=== PATIENT | female | born 1960 | race Caucasian/White ===

== ENCOUNTER → 2023-08-29 15:15 | Outpatient (BNVA) | payer MEDICAID, SELFPAY | PROVIDERS: PCP Internal Medicine; Visit Provider Physician Assistant Surgical ==

== ENCOUNTER 2023-09-03 08:11 | Outpatient (AMB) | payer MEDICAID, SELFPAY ==
--- NOTE | 2023-09-03 11:19 | MHC.OFFVISWM ---
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[facility] BMI 49.1 Allergies aspirin Adverse Reaction (Intermediate, Verified 09/03/23 11:19) Anaphylaxis levofloxacin [From Levaquin] Adverse Reaction (Intermediate, Verified 09/03/23 11:19) Swelling Medication List - Last Reconciled 09/03/23 by Pancho Polo MD atorvastatin 10 mg PO DAILY metformin 1,000 mg PO sertraline mg PO DAILY HPI 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[facility] BMI 49.1 HPI Details Start time: 11.10am, End time: 11.49am ?I spent 34 minutes speaking with the patient on the phone plus an additional 5 minutes reviewing and updating records for a total of 39 minutes HPI Comments History of Present Illness Details Previous weight loss efforts: Weight Watchers Wakes up: 6am, Sleeps: 9pm Breakfast: skips Lunch: 12-1pm (tuna) Dinner: 7pm (chicken with potatoes, vegetables) Snacks: 10am (banana), 4pm (nuts) Exercise: none Fluids: Coffee (1-2/day with creamer), tea: none, soda: diet gingerale, juice: none, ETOH: none PFSH Medical History (Updated 09/03/23 @ 11:25 by Pancho Polo MD) Anxiety Depression DJD (degenerative joint disease) Non-insulin dependent type 2 diabetes mellitus Hyperlipidemia Sleep apnea treated with continuous positive airway pressure (CPAP) Morbid obesity Surgical History (Updated 09/01/23 @ 08:22 by Laurita Cam CMA) Hx of wisdom tooth extraction Hx of tonsillectomy Hx of hysterectomy Hx of colonoscopy Family History (Updated 08/29/23 @ 15:50 by Laurita Cam CMA) Maternal Aunt Breast cancer Paternal Grandmother Breast cancer Social History (Updated 08/29/23 @ 15:50 by Laurita Cam CMA) Alcohol intake: never Patient Tobacco Use Status: Never used Tobacco Assessment & Plan Assessment & Plan (1) Morbid obesity: Code(s): E66.01 - Morbid (severe) obesity due to excess calories Plan: 1.? Plan for lap sleeve gastrectomy. If diaphragmatic or ventral hernias are present at time of surgery, these will be repaired laparoscopically as well. Risks and complications were discussed in detail including possible conversion to an open procedure, anastomotic leak, bleeding requiring transfusion, small bowel obstruction, , DVT and pulmonary embolism, cardiac, or pulmonary complications, as supervisor intermediates complications such as anastomotic ulcer, insufficient weight loss and vitamin deficiencies. I emphasized the importance of close follow-up, adherence to instructions and good communication. 2. Nutritional counseling. Start with 2 CELEBRATE REBUILD protein (buy at [facility] [employer] [facility]) shakes (ONE scoop EACH in 8oz low fat unsweetened almond milk each) at 7am-9am and 10am-12pm, 2 protein bars (CELEBRATE protein bars, buy at [facility] [employer] [facility]) at 1pm-3pm and 4pm-6pm, dinner at 7pm (10 forks of protein and 10 forks of salad/vegetables). If hungry you can have another HALF protein bar at 8pm-9pm So you do 2 protein shakes, 2 to 2.5 protein bars and one meal per day. Meal to include lean meat (beef, fish, pork, turkey, chicken), or tajik yogurt, or egg whites, or beans with a salad with olive oil and fruits (berries, pears, apples, kiwi). Avoid salt, breads, potatoes, rice, pasta, desserts. 3. Each shake would be drunk slowly, like coffee in a period of 2 hours. You can add your coffee into the shakes, if flavors match. 4. Cut each bar in 4 pieces and eat each piece in 30min ?to make each bar last 2 hours. 5. I emphasized the importance of measuring accurately the food portion and measure it when serving the food in plate 6. The meal portions include 10 full-size forks of meat and 10 full-size forks of salad. You always eat the meat portion but you can replace up to 5 forks for salad/vegetables with rice, potatoes or pasta, or a fruit ?if you like. The less you do it the better weight loss will be. 7. One full-size fork is what it can be scooped on the fork without falling aside and not what can be bit with the fork. Use regular forks like those you find in a typical restaurant. 8.? Please send me weight measurements as soon as possible and then once a week. Always include your diet and exercise plan. 9. The best choice would be to purchase a stationary bike at home that can track calories. Let me know if you do so I can give you an exercise plan. 10.?Goal is to lose at least 1.5-2lbs per week 11. Goal to lose 10% of your weight before surgery, which is about 30lbs. Ultimate weight goal: 278lbs before surgery 12. Please follow the diet plan exactly without any change. If you don't like something about the plan or you feel hungry you need to communicate with me so I can help you revise the plan. You should not change the plan yourself. Orders: Orders Hemoglobin A1c Today E11.9 - Type 2 diabetes mellitus without complications, E66.01 - Morbid (severe) obesity due to excess calories, E78.5 - Hyperlipidemia, unspecified, G47.30 - Sleep apnea, unspecified H Pylori Breath Test Today E11.9 - Type 2 diabetes mellitus without complications, E66.01 - Morbid (severe) obesity due to excess calories, E78.5 - Hyperlipidemia, unspecified, G47.30 - Sleep apnea, unspecified Complete Blood Count Auto Diff Today E11.9 - Type 2 diabetes mellitus without complications, E66.01 - Morbid (severe) obesity due to excess calories, E78.5 - Hyperlipidemia, unspecified, G47.30 - Sleep apnea, unspecified Lipid Panel Today E11.9 - Type 2 diabetes mellitus without complications, E66.01 - Morbid (severe) obesity due to excess calories, E78.5 - Hyperlipidemia, unspecified, G47.30 - Sleep apnea, unspecified Zinc Today E11.9 - Type 2 diabetes mellitus without complications, E66.01 - Morbid (severe) obesity due to excess calories, E78.5 - Hyperlipidemia, unspecified, G47.30 - Sleep apnea, unspecified TSH reflex Free T4 Today E11.9 - Type 2 diabetes mellitus without complications, E66.01 - Morbid (severe) obesity due to excess calories, E78.5 - Hyperlipidemia, unspecified, G47.30 - Sleep apnea, unspecified Vitamin D 25-OH Total Today E11.9 - Type 2 diabetes mellitus without complications, E66.01 - Morbid (severe) obesity due to excess calories, E78.5 - Hyperlipidemia, unspecified, G47.30 - Sleep apnea, unspecified US abdomen comp w elastography Today E11.9 - Type 2 diabetes mellitus without complications, E66.01 - Morbid (severe) obesity due to excess calories, E78.5 - Hyperlipidemia, unspecified, G47.30 - Sleep apnea, unspecified XR chest 2V Today E11.9 - Type 2 diabetes mellitus without complications, E66.01 - Morbid (severe) obesity due to excess calories, E78.5 - Hyperlipidemia, unspecified, G47.30 - Sleep apnea, unspecified Insulin Today E11.9 - Type 2 diabetes mellitus without complications, E66.01 - Morbid (severe) obesity due to excess calories, E78.5 - Hyperlipidemia, unspecified, G47.30 - Sleep apnea, unspecified IRON PROFILE Today E11.9 - Type 2 diabetes mellitus without complications, E66.01 - Morbid (severe) obesity due to excess calories, E78.5 - Hyperlipidemia, unspecified, G47.30 - Sleep apnea, unspecified Comprehensive Met. Panel Today E11.9 - Type 2 diabetes mellitus without complications, E66.01 - Morbid (severe) obesity due to excess calories, E78.5 - Hyperlipidemia, unspecified, G47.30 - Sleep apnea, unspecified Vitamin B12 and Folate Today E11.9 - Type 2 diabetes mellitus without complications, E66.01 - Morbid (severe) obesity due to excess calories, E78.5 - Hyperlipidemia, unspecified, G47.30 - Sleep apnea, unspecified C Reactive Protein Today E11.9 - Type 2 diabetes mellitus without complications, E66.01 - Morbid (severe) obesity due to excess calories, E78.5 - Hyperlipidemia, unspecified, G47.30 - Sleep apnea, unspecified Vitamin B1 Today E11.9 - Type 2 diabetes mellitus without complications, E66.01 - Morbid (severe) obesity due to excess calories, E78.5 - Hyperlipidemia, unspecified, G47.30 - Sleep apnea, unspecified Vitamin A Today E11.9 - Type 2 diabetes mellitus without complications, E66.01 - Morbid (severe) obesity due to excess calories, E78.5 - Hyperlipidemia, unspecified, G47.30 - Sleep apnea, unspecified Ferritin Today E11.9 - Type 2 diabetes mellitus without complications, E66.01 - Morbid (severe) obesity due to excess calories, E78.5 - Hyperlipidemia, unspecified, G47.30 - Sleep apnea, unspecified ECG 12 lead EKG Today E11.9 - Type 2 diabetes mellitus without complications, E66.01 - Morbid (severe) obesity due to excess calories, E78.5 - Hyperlipidemia, unspecified, G47.30 - Sleep apnea, unspecified FL upper GI w air Today E11.9 - Type 2 diabetes mellitus without complications, E66.01 - Morbid (severe) obesity due to excess calories, E78.5 - Hyperlipidemia, unspecified, G47.30 - Sleep apnea, unspecified Referrals Behavioral Health Referral E11.9 - Type 2 diabetes mellitus without complications, E66.01 - Morbid (severe) obesity due to excess calories, E78.5 - Hyperlipidemia, unspecified, G47.30 - Sleep apnea, unspecified Nutrition/Dietitian Referral E11.9 - Type 2 diabetes mellitus without complications, E66.01 - Morbid (severe) obesity due to excess calories, E78.5 - Hyperlipidemia, unspecified, G47.30 - Sleep apnea, unspecified Telehealth Telehealth Location of provider rendering services: practice address Location of patient: address on file Patient Identification confirmed using: Name, : Yes Telehealth method: voice only Patient verbally consented to treatment: Yes Patient verbally consented to billing insurance company: Yes Patient informed of any privacy concerns related to visit: Yes Minutes spent on Phone/Video with Pt.: 39 Coding Level of Care Code Tele [facility] Pt Level 3 (65901) Diagnoses Morbid obesity E66.01 Time Spent (min) 39
[2023-09-03 11:30] VITALS: BMI 49.0
== END 2023-09-03 11:50 | disposition home or self-care (01) ==
LOC: HO.HBS 08:11
PROVIDERS: PCP Internal Medicine; Referring Provider Internal Medicine; Visit Provider Surgery
DX: E66.01 Morbid (severe) obesity due to excess calories (principal)
CPT/HCPCS: 99203

== ENCOUNTER → 2023-09-03 08:11 | Outpatient (BNVA) | payer MEDICAID, SELFPAY | PROVIDERS: PCP Internal Medicine; Visit Provider Surgery ==

== ENCOUNTER 2023-09-18 13:19 | Outpatient (AMB) | payer MEDICAID, SELFPAY ==
--- NOTE | 2023-09-18 13:10 | MHC.AMNUTRGE ---
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 Polo. She has no questions or concerns regarding the shakes/bars but would appreciate recipe resources to increase variety for meals. Provided resources and ideas. SWL online classes: 10/02 Dietary counseling reduction Who buys your food self Who prepares/cooks your food self Lifestyle Food frequency Vegetables: daily, Grains/pasta/breads/cereal (carbs): daily, Meats/poultry/fish (protein): daily (minimal beef ), Meat substitutes/nuts/seeds/legumes: daily, Soda: never, Juice: never and Coffee: daily Diagnosis Nutrition problem #1 overweight/obesity As related to (etiology) #1 excess energy intake and physical inactivity As evidenced by (sign/symptom) #1 high BMI Monitoring/Goals Nutrition problem monitoring total energy intake, level of knowledge/skill, total PRO intake, total CHO intake and weight Outcome progress progressing Learning/Education Readiness to learn excellent Stages of change action Educational materials provided Yes Most Recent Diabetes Results: No Data to Display [facility] Medical History (Updated 09/03/23 @ 11:25 by Pancho Polo MD) Anxiety Depression DJD (degenerative joint disease) Non-insulin dependent type 2 diabetes mellitus Hyperlipidemia Sleep apnea treated with continuous positive airway pressure (CPAP) Morbid obesity Surgical History (Updated 09/01/23 @ 08:22 by Laurita Cam CMA) Hx of wisdom tooth extraction Hx of tonsillectomy Hx of hysterectomy Hx of colonoscopy Family History (Updated 08/29/23 @ 15:50 by Laurita Cam CMA) Maternal Aunt Breast cancer Paternal Grandmother Breast cancer Social History (Updated 08/29/23 @ 15:50 by Laurita Cam CMA) Alcohol intake: never Patient Tobacco Use Status: Never used Tobacco Assessment & Plan Assessment & Plan (1) Morbid obesity: Code(s): E66.01 - Morbid (severe) obesity due to excess calories Plan pt will complete online classes and follow up for review Telehealth Telehealth Location of provider rendering services: other (home address, [facility]) Location of patient: address on file Patient Identification confirmed using: Name, : Yes Telehealth method: video Patient verbally consented to treatment: Yes Patient verbally consented to billing insurance company: Yes Patient informed of any privacy concerns related to visit: Yes Minutes spent on Phone/Video with Pt.: 30 Coding Level of Care Code Nutr Indiv Intake (41350) Diagnoses Morbid obesity E66.01 Time Spent (min) 30
== END 2023-09-18 13:52 | disposition home or self-care (01) ==
LOC: HO.HBS 13:20
PROVIDERS: PCP Internal Medicine; Visit Provider Dietitian, Registered
DX: E66.01 Morbid (severe) obesity due to excess calories (principal)

== ENCOUNTER → 2023-09-18 13:19 | Outpatient (BNVA) | payer MEDICAID, SELFPAY | PROVIDERS: PCP Internal Medicine; Visit Provider Dietitian, Registered | DX: E66.01 Morbid (severe) obesity due to excess calories (principal) | CPT/HCPCS: 97802 ==

== ENCOUNTER 2023-09-24 14:25 | Outpatient (AMB) | payer OTHER, SELFPAY ==
--- NOTE | 2023-09-24 14:22 | MHC.WMTHER ---
Intake Intake Visit Reasons: VIDEO BH Intake Allergies aspirin Adverse Reaction (Intermediate, Verified 09/03/23 11:19) Anaphylaxis levofloxacin [From Levaquin] Adverse Reaction (Intermediate, Verified 09/03/23 11:19) Swelling PFSH Medical History (Updated 09/28/23 @ 13:16 by Pancho Polo MD) Anxiety Depression DJD (degenerative joint disease) Non-insulin dependent type 2 diabetes mellitus Hyperlipidemia Sleep apnea treated with continuous positive airway pressure (CPAP) Morbid obesity Surgical History (Updated 09/01/23 @ 08:22 by Laurita Cam CMA) Hx of wisdom tooth extraction Hx of tonsillectomy Hx of hysterectomy Hx of colonoscopy Family History (Updated 08/29/23 @ 15:50 by Laurita Cam CMA) Maternal Aunt Breast cancer Paternal Grandmother Breast cancer Social History (Updated 08/29/23 @ 15:50 by Laurita Cam CMA) Alcohol intake: never Patient Tobacco Use Status: Never used Tobacco Behavioral Health Assessment Weight Management Therapy Therapy Notes Details Pt is looking to have weight loss surgery to help improve his health and quality of life. Pt struggles with hip pain. She reported being in therapy over 20 years ago when her in his sleep at age 39. She is taking anti depressants prescribed by her doctor for about 5 years when she started to feel like she did not want to live anymore. Pt denied any psychiatric admissions and does not drink alcohol or has ever used drugs . Presenting Concerns Referral Source provider Reason for referral weight loss surgery evaluation Precipitating Event obesity Living Situation Current Living Situation Own At risk of losing current housing? No Satisfied with current living situation? Yes Comments Pt lives with her daughter and her . Food/Weight/Diet Expectations of change weight loss and maintenance History/Relationship with food Pt stated that she really didn't think her eating habits were that bad. She has realized that sometimes she ate when she was really not hungry. She would have large breakfast sometimes with maltese toast, ham, sausage, rose, kabob, biscuits, bread. History/Relationship with weight Pt is at her heaviest weight. She reported that after her , she stopped caring for herself and did not care what she looked like or her weight. History/Relationship with dieting [employer] as a teenager, [employer] Binge Eating Do you frequently eat large amounts of food in short periods of time, not feeling physically hungry? No Do you feel out of control when you eat a large amount of food in a short period of time? No Do you eat large amounts of food rapidly and typically alone? Yes Night Eating Do you wake up at least once during the night to eat? No If you wake up in the night, do you find that it is necessary to eat something in order to fall back asleep? No Do you have little or no appetite in the morning and feel very hungry in the evening, often overeating between dinner and when you go to bed? No Social History Family history and relationship Pt is a and has two adult children. She lives with her daughter and is disabled. Pt was raised by her parents and 3 siblings. Her mother has passed and she only speaks to her younger sister. 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 none Education Preferred learning style Auditory, Verbal, Written, Learn by doing and Visual Currently enrolled in educational program? No Interested in further educational program? No Educational Interests/Skills Patient has been disabled for over 10 years. Employment Employment Status Other Wants help to find employment? No Financial Situation Describe current financial situation Occasional struggle Financial assistance? Disability Service Service? No Mental Health and Addiction Treatment Current/Past substance abuse? No Current/Past addictive behavior concerns? No Medical and Physical Health Summary Physical exam in the last year? No Pain Screening Current pain? Yes Pain in the last few months? Yes Medications Is the patient compliant with medications? Yes Does the patient have [place] Guardian in place? Not applicable Does the patient use complimentary health approaches? No Trauma/Abuse History History of trauma? Yes Questionnaires PHQ-9 Over the last 2 weeks, how often have you been bothered by any of the following problems? 1. Little interest or pleasure in doing things: several days 2. Feeling down, depressed, or hopeless: several days 3. Trouble falling or staying asleep, or sleeping too much: nearly every day 4. Feeling tired or having little energy: several days 5. Poor appetite or overeating: several days 6. Feeling bad about yourself - or that you are a failure or have let yourself or your family down: not at all 7. Trouble concentrating on things, such as reading the newspaper or watching television: not at all 8. Moving or speaking so slowly that other people could have noticed. Or the opposite - being so fidgety or restless that you have been moving around a lot more than usual: not at all 9. Thoughts that you would be better off or of hurting yourself in some way: not at all Total score: 7 Source: Developed by Drs. Gavino Kwan, Viviana Velasquez, Billy Fisher and colleagues, with an educational devi from [employer]. Binge Eating Scale Group 1 A. I don't feel self-conscious about my wt. or body size when I'm with others. B. I feel concerned about how I look to others, but it normally does not make me fell disappointed with myself C. I do get self-conscious about my appearance and wt. which makes me feel disappointed in myself. D. I feel very self-conscious about my wt. and frequently I feel intense shame and disgust for myself. I try to avoid social contacts because of my self-consciousness. Response Group 1: D Group 2 A. I don't have any difficulty eating slowly in the proper manner. B. Although I seem to gobble down foods, I don't end up feeling stuffed because of eating to much. C. At times, I tend to eat quickly and then, I feel uncomfortably full afterwards. D. I have the habit of bolting down my food, without really chewing it. When this happens I usually feel uncomfortably stuffed because I've eaten to much. Response Group 2: A Group 3 A. I feel capable to control my eating urges when I want to. B. I feel like I have failed to control my eating more than the average person. C. I feel utterly helpless when it comes to feeling in control of my eating urges. D. Because I feel so helpless about controlling my eating I have become very desperate about trying to get control. Response Group 3: A Group 4 A. I don't have the habit of eating when I'm bored. B. I sometimes eat when I'm bored, but often I'm able to get busy and get my mind off food. C. I have a regular habit of eating when I'm bored, but occasionally, I can use some other activity to get my mind off eating. D. I have a strong habit of eating when I'm bored. Nothing seems to help me breath the habit. Response Group 4: B Group 5 A. I'm usually physically hungry when I eat something. B. Occasionally, I eat something on impulse even though I really am not hungry. C. I have the regular habit of eating foods, that I might not really enjoy, to satisfy a hungry feeling even though physically, I don't need the food. D. Although I'm not physically hungry, I get a hungry feeling in my mouth that only seems to be satisfied when I eat a food, like sandwich, that fills my mouth. Sometimes, when I eat the food to satisfy my mouth hunger, I then spit the food out so I won't gain weight. Response Group 5: B Group 6 A. I don't feel any guilt or self-hate after I overeat. B. After I overeat, occasionally I feel guilt or self-hate. C. Almost all the time I experience strong guilt or self-hate after I overeat. Response Group 6: A Group 7 A. I don't lose total control of my eating when dieting even after periods when I overeat. B. Sometimes when I eat a forbidden food on a diet, I feel like I blew it and eat even more. C. Frequently, I have the habit of saying to myself, I've blown it now, why not go all the way, when I overeat on a diet. When that happens I eat more. D. I have a regular habit of starting a strict diets for myself but I break the diets by going on an eating binge. My life seems to be either a feast or famine. Response Group 7: A Group 8 A. I rarely eat so much food that I feel uncomfortably stuffed afterwards. B. Usually about once a month, I each such a quantity of food, I end up feeling very stuffed. C. I have regular periods during the month when I eat large amounts of food, either at mealtime or at snacks. D. I eat so much food that I regularly feel quite uncomfortable after eating and sometimes a bit nauseous. Response Group 8: A Group 9 A. My level of calorie intake does not go up very high or go down very low on a regular basis. B. Sometimes after I overeat, I will try to reduce my caloric intake to almost nothing to compensate for the excess calories I've eaten. C. I have a regular habit of overeating during the night. It seems that my routine is not to be hungry in the morning but overeat in the evening. D. In my adult years, I have had week-long periods where I practically starve myself. This follows periods when I overeat. It seems I live a life of either feast or famine. Response Group 9: B Group 10 A. I usually am able to stop eating when I want to. I know when enough is enough. B. Every so often, I experience a compulsion to eat which I can't seem to control. C. Frequently, I experience strong urges to eat which I seem unable to control, but at other times I can control my eating urges. D. I feel incapable of controlling urges to eat. I have a fear of not being able to stop eating voluntarily. Response Group 10: A Group 11 A. I don't have any problem stopping eating when I feel full. B. I usually can stop eating when I feel full but occasionally overeat leaving me feeling uncomfortably stuffed. C. I have a problem stopping eating once I start and usually I feel uncomfortably stuffed after I eat a meal. D. Because I have a problem not being able to stop eating when I want, I sometimes have to induce vomiting to relieve my stuffed feeling. Response Group 11: B Group 12 A. I seem to eat just as much when I'm with others, Family social gatherings as when I'm by myself. B. Sometimes, when I'm with other persons, I don't eat as much as I want to eat because I'm self-conscious about my eating. C. Frequently, I eat only a small amount of food when others are present, because I'm very embarrassed about my eating. D. I feel so ashamed about overeating that I pick times to overeat when I know no one will see me. I feel like a closet eater. Response Group 12: A Group 13 A. I eat three meals a day with only an occasional between meal snack. B. I eat 3 meals a day, but I also normally snack between meals. C. When I am snacking heavily, I get in the habit of skipping regular meals. D. There are regular periods when I seem to be continually eating, with no planned meals. Response Group 13: A Group 14 A. I don't think much about trying to control unwanted eating urges. B. At least some of the time, I feel my thoughts are pre-occupied with trying to control my eating urges. C. I feel that frequently I spend much time thinking about how much I ate or about trying not to eat anymore. D. It seems to me that most of my waking hours are pre-occupied by thoughts about eating or not eating. I feel like I'm constantly struggling not to eat. Response Group 14: B Group 15 A. I don't think about food a great deal. B. I have strong craving for food but they last only for brief periods of time. C. I have days when I can't seem to think about anything else but food. D. Most of my days seem to be pre-occupied with thoughts about food. I feel like I live to eat. Response Group 15: A Group 16 A. I usually know whether or not I'm physically hungry. I take the right portion of food to satisfy me. B. Occasionally, I feel uncertain about knowing whether or not I'm physically hungry. A these times it's hard to know how much food I should take to satisfy me. C. Even though I might know how many calories I should eat, I don't have any idea what is a normal amount of food for me. Response Group 16: A Binge Eating Score: 8 Score less than 17 Minimal Risk Score between 18-26 Moderate Risk Score between 27-46 High Risk Assessment & Plan Assessment & Plan (1) Depression: Code(s): F32.A - Depression, unspecified (2) Morbid obesity: Code(s): E66.01 - Morbid (severe) obesity due to excess calories Plan Pt is doing well. She has no significant mental health barriers and numerous supports. Patient is cleared for surgery when ready. Telehealth Telehealth Location of provider rendering services: other Location of patient: address on file Patient Identification confirmed using: Name, : Yes Telehealth method: voice only Patient verbally consented to treatment: Yes Patient verbally consented to billing insurance company: Yes Patient informed of any privacy concerns related to visit: Yes Minutes spent on Phone/Video with Pt.: 45 Coding Level of Care Code Tele Psy Diag Eval (77342) Diagnoses Depression F32.A Morbid obesity E66.01 Time Spent (min) 45
== END 2023-09-24 15:15 ==
PROVIDERS: PCP Internal Medicine; Visit Provider Counselor Mental Health
DX: F32.A Depression, unspecified (principal); E66.01 Morbid (severe) obesity due to excess calories
CPT/HCPCS: 90791

== ENCOUNTER → 2023-09-24 14:25 | Outpatient (BNVA) | payer MEDICAID, SELFPAY | PROVIDERS: PCP Internal Medicine; Visit Provider Counselor Mental Health ==

== ENCOUNTER 2023-09-26 08:14 | Outpatient (AMB) | payer MEDICAID, SELFPAY ==
--- NOTE | 2023-09-26 08:48 | MHC.OFFVISWM ---
Intake VS Expanded 09/26/23 08:54 Height 5 ft 5.6 in Weight 296 lb 6 oz BMI 48.4 Body Fat % 66.9 Body Fat Mass 198.4 Fat Free Mass 98.2 Visceral Fat Rating 28 Body Water % 22.7 Body Water Mass 67.3 Intake Visit Reasons: TV Follow Up [facility] - 1ST Allergies aspirin Adverse Reaction (Intermediate, Verified 09/03/23 11:19) Anaphylaxis levofloxacin [From Levaquin] Adverse Reaction (Intermediate, Verified 09/03/23 11:19) Swelling HPI TV Follow Up [facility] - 1ST HPI Details Start time: 8.40am, End time: 9am ?I spent 15 minutes speaking with the patient on the phone plus an additional 5 minutes reviewing and updating records for a total of 20 minutes HPI Comments History of Present Illness Details Overall weight loss: 12.2lbs, or 4% TBWL Is doing 2 Celebrate Rebuild protein shakes (1 scoop each in 8oz almond milk), 2 Celebrate protein bars and one meal (10 forks of protein and 10 forks of salad or vegetables) Exercise: is doing the stationary bike [facility] Medical History (Updated 09/03/23 @ 11:25 by Pancho Polo MD) Anxiety Depression DJD (degenerative joint disease) Non-insulin dependent type 2 diabetes mellitus Hyperlipidemia Sleep apnea treated with continuous positive airway pressure (CPAP) Morbid obesity Surgical History (Updated 09/01/23 @ 08:22 by Laurita Cam CMA) Hx of wisdom tooth extraction Hx of tonsillectomy Hx of hysterectomy Hx of colonoscopy Family History (Updated 08/29/23 @ 15:50 by Laurita Cam CMA) Maternal Aunt Breast cancer Paternal Grandmother Breast cancer Social History (Updated 08/29/23 @ 15:50 by Laurita Cam CMA) Alcohol intake: never Patient Tobacco Use Status: Never used Tobacco Assessment & Plan Assessment & Plan (1) Morbid obesity: Code(s): E66.01 - Morbid (severe) obesity due to excess calories Plan: 1. Continue same nutritional plan of 2 Celebrate Rebuild protein shakes (1 scoop each in 8oz almond milk), 2 Celebrate protein bars and one meal (10 forks of protein and 10 forks of salad or vegetables) 2. Exercise: continue the stationary bike at the lowest resistance for 100 calories at a time, three times per day, daily. Goal is to burn 2000 calories per week 3. Avoid extensive walking 4. Continue to send me weight measurements weekly on Telehealth Telehealth Location of provider rendering services: practice address Location of patient: address on file Patient Identification confirmed using: Name, : Yes Telehealth method: voice only Patient verbally consented to treatment: Yes Patient verbally consented to billing insurance company: Yes Patient informed of any privacy concerns related to visit: Yes Minutes spent on Phone/Video with Pt.: 20 Coding Level of Care Code Tele Est Pt Level 3 (26765) Diagnoses Morbid obesity E66.01 Time Spent (min) 20
[2023-09-26 08:54] VITALS: BMI 48.4
== END 2023-09-26 09:00 | disposition home or self-care (01) ==
LOC: HO.HBS 08:14
PROVIDERS: PCP Internal Medicine; Referring Provider Internal Medicine; Visit Provider Surgery
DX: E66.01 Morbid (severe) obesity due to excess calories (principal)
CPT/HCPCS: 99213

== ENCOUNTER → 2023-09-26 08:14 | Outpatient (BNVA) | payer MEDICAID, SELFPAY | PROVIDERS: PCP Internal Medicine; Visit Provider Surgery ==

== ENCOUNTER 2023-10-01 10:28 | Outpatient (REF) | payer MEDICAID, SELFPAY ==
--- NOTE | ~2023-10-01 | US_ITS ---
EXAMINATION: US COMPLETE ABDOMEN WITH LIVER ELASTOGRAPHY CLINICAL INFORMATION: Obesity. COMPARISON: None available. TECHNIQUE: Real-time imaging of the abdominal viscera. Noninvasive ultrasound liver fibrosis assessment is performed using Den ElastPQ point quantification shear wave elastography (2D-SWE) with a C5-2 MHz transducer. Multiple elastography samples are obtained. FINDINGS: PANCREAS: Normal. The visualized pancreatic head and body are normal in appearance. The remainder of the pancreas is obscured from visualization by the overlying bowel gas. ABDOMINAL AORTA: The proximal segment is normal in caliber. The middle and distal aortic segments are normal in caliber. INFERIOR VENA CAVA: Visualized portions are normal. LIVER: The liver demonstrates normal contour and increased echogenicity. No focal lesion or intrahepatic biliary duct dilatation. The right lobe measures 18.1 cm in length. The left lobe measures 12.3 cm in length. Portal flow is towards the liver (hepatopetal). Shear wave liver elastography median stiffness is 1.57 m/s (reference: normal median stiffness is 1.3 m/s or less). IQR/median stiffness to assess sampling precision is 0.20 (reference: good quality data set is IQR/median stiffness of 0.15 or less). GALLBLADDER: Normal. The gallbladder is physiologically distended without evidence of stones, sludge, polyps, wall thickening or pericholecystic fluid. COMMON BILE DUCT: Normal in caliber measuring 0.3 cm in diameter. RIGHT KIDNEY: At the lower pole, a 5 mm nonobstructing calculus is seen. No hydronephrosis. No focal parenchymal lesions. The kidney measures 10.6 cm in maximum dimension. LEFT KIDNEY: Normal. No hydronephrosis. No renal calculi or focal parenchymal lesions. The kidney measures 11.4 cm in maximum dimension. SPLEEN: Normal. The spleen measures 11.3 cm in maximum dimension. FREE FLUID: None. US/US abdomen comp w elastography IMPRESSION: 1. There is hepatomegaly. 2. There is generalized increase in hepatic echotexture, consistent with fatty infiltration or hepatocellular disease. Please correlate clinically. No focal hepatic mass or intrahepatic biliary dilatation is seen. 3. Liver elastography: Although measurements appear to rule out compensated advanced chronic liver disease, there is statistical variability of the sampling which decreases accuracy. 4. A 5 mm nonobstructing left renal calculus is seen. 5. Technically limited ultrasound examination, in particular of the abdominal great vessels and left kidney. REFERENCE: Society of Radiologists in Ultrasound Liver Stiffness Thresholds (2020): LIVER STIFFNESS THRESHOLDS: *Liver Stiffness equal or less than 1.3 m/s: High probability of being normal. *Liver Stiffness less than 1.7 m/s: In the absence of other known clinical signs, rules out compensated advanced chronic liver disease. *Liver Stiffness 1.7-2.1 m/s: Suggestive of compensated advanced chronic liver disease but need further test for confirmation. *Liver Stiffness over 2.1 m/s: Rules in compensated advanced chronic liver disease. *Liver Stiffness over 2.4 m/s: Suggestive of clinically significant portal hypertension. QUALITY OF DATA SET: *IQR/Median value equal or less than 0.15 implies a quality data set. *IQR/Median value over 0.15 implies a poor quality data set. SIGNIFICANT CHANGE FROM PRIOR EXAM: Significant change if liver stiffness measurement is 10% or greater from prior exam. OTHER CONSIDERATIONS: The stage of liver fibrosis may be overestimated in the setting of acute hepatitis, liver inflammation, elevated liver function tests, hepatic vascular congestion, obstructive cholestasis, non-fasting state, and infiltrative diseases such as amyloidosis and lymphoma. In some patients with NAFLD, the liver stiffness thresholds for compensated advanced chronic liver disease may be lower. In causes other than viral hepatitis and NAFLD, liver stiffness thresholds are not well established.
--- NOTE | 2023-10-01 12:02 | ECG_ITS ---
Test Reason : e66.01 Blood Pressure : / mmHG Vent. Rate : 065 BPM Atrial Rate : 065 BPM P-R Int : 140 ms QRS Dur : 092 ms QT Int : 422 ms P-R-T Axes : 059 -46 035 degrees QTc Int : 438 ms Normal sinus rhythm Left anterior fascicular block Nonspecific T wave abnormality Abnormal ECG No previous ECGs available Referred By: Pancho Polo Electronically Signed By:Dwayne Ragsdale
[2023-10-03 11:26] LABS: H Pylori Breath Test Negative (Negative)
== END 2023-10-01 10:29 | disposition home or self-care (01) ==
LOC: HO.US 10:28
PROVIDERS: PCP Internal Medicine; Visit Provider Surgery
DX: E66.01 Morbid (severe) obesity due to excess calories (principal); E11.9 Type 2 diabetes mellitus without complications; G47.30 Sleep apnea, unspecified; E78.5 Hyperlipidemia, unspecified
CPT/HCPCS: 76700; 76981; 83013; 93005; 99211

== ENCOUNTER → 2023-10-01 12:02 | Outpatient (BNV) | payer MEDICAID, SELFPAY | PROVIDERS: PCP Internal Medicine; Visit Provider Internal Medicine Cardiovascular Disease | DX: I44.4 Left anterior fascicular block (principal); R94.31 Abnormal electrocardiogram [ECG] [EKG] | CPT/HCPCS: 93010 ==

== ENCOUNTER 2023-10-09 13:04 | Outpatient (AMB) | payer MEDICAID, SELFPAY ==
--- NOTE | 2023-10-09 13:01 | A.OFFVIS_ITS ---
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 Polo. She has no questions or concerns regarding the shakes/bars but would appreciate recipe resources to increase variety for meals. Provided resources and ideas last appt and she reports the handouts were very helpful [facility] online classes: 03/04 Reviewed Dietary counseling reduction Diagnosis Nutrition problem #1 overweight/obesity As related to (etiology) #1 excess energy intake and physical inactivity As evidenced by (sign/symptom) #1 high BMI Monitoring/Goals Nutrition problem monitoring total energy intake, level of knowledge/skill, total PRO intake, total CHO intake and weight Outcome progress progressing Learning/Education Readiness to learn excellent Stages of change action Educational materials provided Yes Most Recent Diabetes Results: No Data to Display [facility] Medical History (Updated 10/02/23 @ 17:10 by Pancho Polo MD) Anxiety Depression DJD (degenerative joint disease) Non-insulin dependent type 2 diabetes mellitus Hyperlipidemia Sleep apnea treated with continuous positive airway pressure (CPAP) Morbid obesity Surgical History (Updated 09/01/23 @ 08:22 by Laurita Cam CMA) Hx of wisdom tooth extraction Hx of tonsillectomy Hx of hysterectomy Hx of colonoscopy Family History (Updated 08/29/23 @ 15:50 by Laurita Cam CMA) Maternal Aunt Breast cancer Paternal Grandmother Breast cancer Social History (Updated 08/29/23 @ 15:50 by Laurita Cam CMA) Alcohol intake: never Patient Tobacco Use Status: Never used Tobacco Assessment & Plan Assessment & Plan (1) Morbid obesity: Code(s): E66.01 - Morbid (severe) obesity due to excess calories Plan pt is cleared from a nutrition standpoint for bariatric surgery. Telehealth Telehealth Location of provider rendering services: practice address Location of patient: address on file Patient Identification confirmed using: Name, : Yes Telehealth method: voice only Patient verbally consented to treatment: Yes Patient verbally consented to billing insurance company: Yes Patient informed of any privacy concerns related to visit: Yes Minutes spent on Phone/Video with Pt.: 20 Coding Level of Care Code Nutr Indiv Subseq ([id number]) Diagnoses Morbid obesity E66.01 Time Spent (min) 20
== END 2023-10-09 13:17 | disposition home or self-care (01) ==
LOC: HO.HBS 13:04
PROVIDERS: PCP Internal Medicine; Visit Provider Dietitian, Registered
DX: E66.01 Morbid (severe) obesity due to excess calories (principal)

== ENCOUNTER 2023-10-24 07:32 | Outpatient (AMB) | payer MEDICAID, SELFPAY ==
--- NOTE | 2023-10-24 08:10 | MHC.OFFVISWM ---
Intake VS Expanded 10/24/23 08:19 Height 5 ft 6.5 in Weight 286 lb 2 oz BMI 45.5 Body Fat % 64.2 Body Fat Mass 183.7 Fat Free Mass 102.4 Visceral Fat Rating 27 Body Water % 24.5 Body Water Mass 70.1 Basal Metabolic Rate/Score 1,352 Intake Visit Reasons: TV Pre Op LSG 11/04/23 Allergies aspirin Adverse Reaction (Intermediate, Verified 10/24/23 08:10) Anaphylaxis levofloxacin [From Levaquin] Adverse Reaction (Intermediate, Verified 10/24/23 08:10) Swelling Medication List - Last Reconciled 10/24/23 by Pancho Polo MD atorvastatin 10 mg PO DAILY cholecalciferol (vitamin D3) 125 mcg PO DAILY mecobalamin (vitamin B12) 1,000 mcg sublingual DAILY metformin 1,000 mg PO ondansetron 4 mg PO Q12H pantoprazole 40 mg PO DAILY polyethylene glycol 3350 (Miralax) 17 grams PO DAILY sertraline mg PO DAILY sucralfate (Carafate) 10 mL PO BID HPI TV Pre Op LSG 11/04/23 HPI Details Start time: 7.57am, End time: 8.27am ?I spent 25 minutes speaking with the patient on the phone plus an additional 5 minutes reviewing and updating records for a total of 30 minutes HPI Comments History of Present Illness Details Overall weight loss: 22.6lbs, or 7.32% TBWL Is doing 2 Celebrate Rebuild protein shakes (1 scoop in almond), 2 Celebrate protein bars and one meal (10 forks of meat and 10 forks of salad or vegetables) Exercise: stationary bike 3 times per day for 100 calories each, daily PFSH Medical History (Updated 10/02/23 @ 17:10 by Pancho Polo MD) Anxiety Depression DJD (degenerative joint disease) Non-insulin dependent type 2 diabetes mellitus Hyperlipidemia Sleep apnea treated with continuous positive airway pressure (CPAP) Morbid obesity Surgical History (Updated 09/01/23 @ 08:22 by Laurita Cam CMA) Hx of wisdom tooth extraction Hx of tonsillectomy Hx of hysterectomy Hx of colonoscopy Family History (Updated 08/29/23 @ 15:50 by Laurita Cam CMA) Maternal Aunt Breast cancer Paternal Grandmother Breast cancer Social History (Updated 08/29/23 @ 15:50 by Laurita Cam [facility]) Alcohol intake: never Patient Tobacco Use Status: Never used Tobacco Assessment & Plan Assessment & Plan (1) Morbid obesity: Code(s): E66.01 - Morbid (severe) obesity due to excess calories Plan: 1. Plan for lap sleeve gastrectomy including upper GI endoscopy. All tests has been completed and reviewed and the patient is cleared for the surgery. ?If diaphragmatic or ventral hernias are present at time of surgery, these will be repaired laparoscopically as well. Risks and complications were discussed in detail including possible conversion to an open procedure, anastomotic leak, bleeding requiring transfusion, small bowel obstruction, , DVT and pulmonary embolism, cardiac, or pulmonary complications, as half-way complications such as anastomotic ulcer, insufficient weight loss and vitamin deficiencies. I emphasized the importance of close follow-up, adherence to instructions and good communication. So far she has proven to be an excellent communicator and very compliant with all our directions accomplishing a great weight loss. I believe that she is an excellent candidate and she is ready. 2. Preop prescriptions were provided and explained the purpose of each one. Need to be purchased preop. Start Pantoprazole now as you get it from the pharmacy, 1 pill per day. Sucralfate and Zofran are for after surgery as needed. 3. Bowel prep: please do 7 packets ?of Miralax mixing each one with a an 8oz glass of water, crystal light, gatorade zero, or propel ?on 11/02/23 and the same amount on 11/03/23. The Miralax you begin with one packet at a time in 8oz water or crystal light, gatorade zero, or propel ?as early in the day as you can and you do them back to back until you finish them. Continue the protein shakes during? the bowel prep. 4. Needs to purchase 1oz medicine cups . 5. Needs to purchase Children's liquid Tylenol for postop pain control. 6. Avoid aspirin, motrin, Advil, Aleve, Ibuprofen, Naproxyn. Tylenol is OK. 7. She needs to purchase the Celebrate 4:1 protein shakes from the hospital's gift shop. 8. Will do basic preop blood work-up any day between Friday10/27/23 and Friday10/31/23 fasting for 12 hours and is scheduled to see the Anesthesiologist prior to the day of surgery. 9. Do not take any of your medications the day of surgery. 10. Importance of adherence to postop folllow-up and recommendations was underscored and she understands that. 11. Stop food and bars as of tomorrow 10/25/23 and continue with 5 Celebrate REBUILD protein shakes (TWO scoops EACH in 8oz almond milk) at 7am-9am, 10am-12pm, 1pm-3pm, 4pm-6pm and at 7pm-9pm 12. No soups, broths or V8 13. The patient's?medical?history has been reviewed and they are considered low risk for post op DVT and therefore DVT prophylaxis is not considered necessary. Travel after surgery was reviewed. The patient has not disclosed any travel plans during the first 30 days after surgery and they have been advised that within the first 30 days after surgery any bus, plane, train or car travel over 2 hours in duration is contraindicated due to the possibility of developing blood clots from immobility. Any travel, needs to include periods of ambulation of 10 minutes in duration every 2 hours.? Patient was instructed to discuss any plans for travel during this period with their bariatric surgeon.? 14. Use your CPAP daily and bring it to the hospital with your mask 15. Please take at the day of surgery the following medications: NONE 16. Stop any control pills and don't use them for one month after surgery 17. Absolutely no smoking or vaping, or marijuana until the surgery and for at least the first 4 weeks. Only nicotine patches are allowed. 18. Send me weight measurements on 10/30/23 and then on Friday11/04/23 the day of surgery before you go to the hospital. 19. Avoid any steroids by mouth for any reason. Let me know if someone prescribes them to you 20. These instructions supersede anything else you read in the handbook, anything you watched in videos or classes or you were told by any other provider. If there is any conflict, you follow the above instructions and nothing else. Orders: Orders Prothrombin Time INR Today E11.9 - Type 2 diabetes mellitus without complications, E66.01 - Morbid (severe) obesity due to excess calories, E78.5 - Hyperlipidemia, unspecified Type and Screen Today E11.9 - Type 2 diabetes mellitus without complications, E66.01 - Morbid (severe) obesity due to excess calories, E78.5 - Hyperlipidemia, unspecified Partial Thromboplastin Time Today E11.9 - Type 2 diabetes mellitus without complications, E66.01 - Morbid (severe) obesity due to excess calories, E78.5 - Hyperlipidemia, unspecified Insulin Today E11.9 - Type 2 diabetes mellitus without complications, E66.01 - Morbid (severe) obesity due to excess calories, E78.5 - Hyperlipidemia, unspecified C Reactive Protein Today E11.9 - Type 2 diabetes mellitus without complications, E66.01 - Morbid (severe) obesity due to excess calories, E78.5 - Hyperlipidemia, unspecified Hemoglobin A1c Today E11.9 - Type 2 diabetes mellitus without complications, E66.01 - Morbid (severe) obesity due to excess calories, E78.5 - Hyperlipidemia, unspecified TSH reflex Free T4 Today E11.9 - Type 2 diabetes mellitus without complications, E66.01 - Morbid (severe) obesity due to excess calories, E78.5 - Hyperlipidemia, unspecified Complete Blood Count Auto Diff Today E11.9 - Type 2 diabetes mellitus without complications, E66.01 - Morbid (severe) obesity due to excess calories, E78.5 - Hyperlipidemia, unspecified Lipid Panel Today E11.9 - Type 2 diabetes mellitus without complications, E66.01 - Morbid (severe) obesity due to excess calories, E78.5 - Hyperlipidemia, unspecified Comprehensive Met. Panel Today E11.9 - Type 2 diabetes mellitus without complications, E66.01 - Morbid (severe) obesity due to excess calories, E78.5 - Hyperlipidemia, unspecified Medications: New pantoprazole 40 mg PO DAILY 90 tabs 0RF K21.9 - Gastro-esophageal reflux disease without esophagitis ondansetron Only take one every 12 hours as needed if you have nausea 4 mg PO Q12H 20 tabs 0RF nausea and vomiting R11.0 - Nausea polyethylene glycol 3350 (Miralax) Mix each packet with 8oz of water, Crystal light, or Gatorade zero, or Propel and do 7 packets on 11/02/23 and another 7 packets on 11/03/23 17 grams PO DAILY 14 ea 0RF Z01.818 - Encounter for other preprocedural examination sucralfate (Carafate) 10 mL PO BID 600 mL 2RF K21.9 - Gastro-esophageal reflux disease without esophagitis Telehealth Telehealth Location of provider rendering services: practice address Location of patient: address on file Patient Identification confirmed using: Name, : Yes Telehealth method: voice only Patient verbally consented to treatment: Yes Patient verbally consented to billing insurance company: Yes Patient informed of any privacy concerns related to visit: Yes Minutes spent on Phone/Video with Pt.: 30 Coding Level of Care Code Tele Est Pt Level 4 (95574) Diagnoses Morbid obesity E66.01 Time Spent (min) 30
[2023-10-24 08:19] VITALS: BMI 45.5
== END 2023-10-24 08:28 | disposition home or self-care (01) ==
LOC: HO.HBS 07:32
PROVIDERS: PCP Internal Medicine; Visit Provider Surgery
DX: E66.01 Morbid (severe) obesity due to excess calories (principal)
CPT/HCPCS: 99214

== ENCOUNTER → 2023-10-24 07:32 | Outpatient (BNVA) | payer MEDICAID, SELFPAY | PROVIDERS: PCP Internal Medicine; Visit Provider Surgery ==

== ENCOUNTER 2023-10-28 10:27 | Outpatient (REF) | payer MEDICAID, SELFPAY ==
--- NOTE | ~2023-10-28 | XR_ITS ---
EXAMINATION: XR CHEST CLINICAL INFORMATION: Morbid obesity. COMPARISON: None available. TECHNIQUE: 2 views of the chest were obtained. FINDINGS: Degenerative changes are present in the spine. The descending aorta is mildly tortuous. Degenerative changes are seen in the right shoulder and AC joint. No other significant abnormality is noted involving the heart, lungs, mediastinum, bony thorax or soft tissues. XR/XR chest 2V IMPRESSION: No acute intrathoracic disease. Degenerative changes in the spine and right shoulder.
--- NOTE | ~2023-10-28 | FL_ITS ---
EXAMINATION: XR FLUOROSCOPY UPPER GI WITH AIR CLINICAL INFORMATION: Preop evaluation prior to bariatric surgery COMPARISON: None TECHNIQUE: Fluoroscopic air contrast upper GI examination was performed utilizing standard techniques with thin and thick barium and effervescent granules. Numerous spot images were obtained. FINDINGS: Dual and single contrast images of the esophagus demonstrate normal caliber, contour, and mucosal pattern. No evidence of stricture, mass, or ulcerations identified. Esophageal peristalsis was normal. Moderate-sized type I hiatal hernia. Significant gastroesophageal reflux is seen up to the thoracic inlet. Dual contrast and single contrast images of the stomach demonstrated normal contour and mucosal pattern without evidence of mass, ulceration, or other abnormality. Contrast freely passed into the gastric antrum and duodenal bulb without delay. Single and air-contrast images of the duodenal bulb demonstrate no abnormality. The duodenal sweep has a normal appearance, course, and mucosal fold appearance. The imaged proximal jejunum has a normal fold pattern and caliber. FLUOROSCOPY TIME: 3 minutes 17 seconds Number of Spot Images: 11 Number of Cine: 9 DOSE AREA PRODUCT: 3357 uGy-m2 (microgray-meter squared) FL/FL upper GI w air IMPRESSION: 1. Moderate-sized type I hiatal hernia. 2. Severe gastroesophageal reflux. This procedure was performed by Bryce Mendoza PA-C, and supervised by Dr. Ceballos
== END 2023-10-28 10:28 | disposition home or self-care (01) ==
LOC: HO.XRAY 10:27
PROVIDERS: PCP Internal Medicine; Visit Provider Surgery
DX: E66.01 Morbid (severe) obesity due to excess calories (principal); G47.30 Sleep apnea, unspecified; E78.5 Hyperlipidemia, unspecified; E11.9 Type 2 diabetes mellitus without complications
CPT/HCPCS: 71046; 74246

== ENCOUNTER → 2023-10-28 10:29 | Outpatient (BNV) | payer MEDICAID, SELFPAY | PROVIDERS: PCP Internal Medicine; Visit Provider Physician Assistant Surgical | DX: Z01.818 Encounter for other preprocedural examination (principal); E66.01 Morbid (severe) obesity due to excess calories | CPT/HCPCS: 74246 ==

== ENCOUNTER 2023-11-05 | Outpatient (REF) | payer MEDICAID, SELFPAY | END 2023-11-05 00:01 | disposition home or self-care (01) | LOC: CF | PROVIDERS: PCP Internal Medicine; Visit Provider Dietitian, Registered | DX: E66.01 Morbid (severe) obesity due to excess calories (principal); R94.31 Abnormal electrocardiogram [ECG] [EKG]; Z71.3 Dietary counseling and surveillance | CPT/HCPCS: 97803 ==

== ENCOUNTER 2023-11-06 | Outpatient (REF) | payer MEDICAID, SELFPAY ==
[2023-10-30 09:30] VITALS: BMI 44.6
[2023-10-31 06:20] LABS: MANUAL DIFF FLAG NO
[2023-10-31 07:02] LABS: Basophils Percent Auto 0.4 % (0-2); Eosinophils Absolute Auto 0.1 X10*3/uL (0.0-0.4); Eosinophils Percent Auto 0.9 % (0-4); Hematocrit 44.5 % (37.0-47.0); Hemoglobin 14.6 g/dl (12.0-16.0); Imm Gran Abs Auto 0.01 X10*3/uL (0.00-0.03); Imm Gran Pct Auto 0.2 % (0.0-0.4); Lymphocytes Percent Auto 36.8 % (20-40); Mean Corpuscular HGB Conc 32.8 g/dl (31.0-35.0); Mean Corpuscular Volume 88.5 fL (80.0-98.0); Mean Platelet Volume 9.9 fL (9.4-12.3); Monocytes Absolute Auto 0.5 X10*3/uL (0.1-1.2); Monocytes Percent Auto 8.7 % (2-11); Neutrophils Absolute Auto 2.9 x10*3/uL (2.0-8.3); Platelet Count 222 X10*3/uL (160-400); Red Blood Count 5.03 X10*6/uL (4.20-5.50); White Blood Count 5.4 X10*3/uL (4.8-10.8)
[2023-10-31 07:11] LABS: INTERNATIONAL NORM RATIO 0.9 (0.9-1.1); Prothrombin Time 11.4 SEC (11.1-13.3)
[2023-10-31 07:12] LABS: Estimated Average Glucose 105 mg/dL; Hemoglobin A1c % 5.3 % (<6.0)
[2023-10-31 07:23] LABS: Alanine Aminotransferase 26 U/L (0-31); Albumin Level 4.4 g/dL (3.5-5.0); Alkaline Phosphatase 67 U/L (39-117); Anion Gap 15 (12-20); Aspartate Amino Transferase 22 U/L (5-31); Bilirubin Total 0.6 mg/dL (0.0-1.0); Blood Urea Nitrogen 19 mg/dL (9-16); C Reactive Protein 0.46 mg/dL (< or = 0.50); Calcium 10.3 mg/dL (8.4-10.2); Carbon Dioxide 26 mmol/L (22-29); Chloride 104 mmol/L (96-108); Cholesterol 139 mg/dL (<200); Creatinine Clr Calc Pharmacy 176.7; Estimated Glomerular Filt Rate > 60; Glucose Random 92 mg/dL (60-115); HDL Cholesterol 35 mg/dL (>40); Iron 95 mcg/dL (30-160); LDL Cholesterol Calculated 68 mg/dL (<100); Percent Iron Saturation 32 % (15-50); Sodium 141 mmol/L (135-145); Total Iron Binding Capacity 301 mcg/dL (228-428); Total Protein 7.7 g/dL (6.5-8.0); Triglycerides 180 mg/dL (<150); Unsaturated Iron Binding 206 ug/dL
[2023-10-31 07:42] LABS: Ferritin 386 ng/mL (10-250); Insulin 7 uU/mL (2-29); TSH reflex Free T4 1.34 uIU/mL (0.32-4.0); Vitamin D 25-OH Total 34.8 ng/mL (>30)
[2023-10-31 07:50] LABS: Folate 4.3 ng/mL (> or = 4.0); Vitamin B12 679 pg/mL (200-900)
[2023-11-04 02:38] LABS: Zinc 122 mcg/dL (60-130)
--- NOTE | 2023-11-04 12:42 | P.CONAN_ITS ---
HPI - Anesthesia Eval Consult details Narrative: 63yo F for Gastrectomy Sleeve-EGD, possible diaphragmatic hernia, possible ventral hernia, possible open Pending cardiac testing 11/05/23 for abnormal EKG. Hx of DI. Pt will bring letter DOS. PMFSH Active Problems Active Problems: All Active Problems Abnormal EKG (Acute) Vitamin B12 deficiency (Acute) Vitamin D deficiency (Acute) Anxiety (Acute) Depression (Acute) DJD (degenerative joint disease) (Acute) Non-insulin dependent type 2 diabetes mellitus (Acute) Hyperlipidemia (Acute) Sleep apnea treated with continuous positive airway pressure (CPAP) (Acute) Morbid obesity (Acute) Past Medical History Medical History (Updated 10/30/23 @ 09:09 by Charlee Castanon, RN) History of difficult intubation Hx of transfusion of packed red blood cells Hiatal hernia Asthma Anxiety Depression DJD (degenerative joint disease) Non-insulin dependent type 2 diabetes mellitus Hyperlipidemia Sleep apnea treated with continuous positive airway pressure (CPAP) Morbid obesity Family History Family History (Updated 08/29/23 @ 15:50 by Laurita Cam CMA) Maternal Aunt Breast cancer Paternal Grandmother Breast cancer Surgical History Surgical History (Updated 10/30/23 @ 09:09 by Charlee Castanon RN) History of back surgery Hx of wisdom tooth extraction Hx of tonsillectomy Hx of hysterectomy Hx of colonoscopy Social History Social History (Updated 08/29/23 @ 15:50 by Laurita Cam CMA) Are you a primary laboratory animal caretaker to a significant other at home: No Do you presently have visiting nurse or other home services: No Alcohol intake: never Patient Tobacco Use Status: Never used Tobacco Meds Allergies Allergy/AdvReac Type Severity Reaction Status Date / Time aspirin AdvReac Intermediate Anaphylaxis Verified 10/24/23 08:10 levofloxacin [From Levaquin] AdvReac Intermediate Swelling Verified 10/24/23 08:10 Home Medications ?Medication ?Instructions ?Recorded ?Confirmed ?Last Taken ?Type atorvastatin 10 mg tablet 10 mg PO DAILY 09/01/23 10/30/23 Unknown History metformin 500 mg tablet 1,000 mg PO BID 09/01/23 10/30/23 Unknown History sertraline 50 mg tablet 50 mg PO DAILY 09/01/23 10/30/23 Unknown History albuterol sulfate 90 mcg/actuation 1 puff inhalation QID PRN 10/30/23 10/30/23 Unknown History aerosol inhaler Shortness Of Breath Or Wheezing mecobalamin (vitamin B12) 1,000 1,000 mcg sublingual BEDTIME 10/30/23 10/30/23 Unknown History mcg disintegrating tablet,sublingual Exam Height,Weight and Vital Signs: Height 5 ft 6.5 in Weight 127.278 kg Pertinent Lab Results Pertinent Lab Results: Laboratory Tests 10/31/23 10/31/23 06:10 06:19 WBC 5.4 RBC 5.03 Hgb 14.6 Hct 44.5 MCV 88.5 MCH 29.0 MCHC 32.8 RDW 12.0 Plt Count 222 MPV 9.9 Immature Gran % (Auto) 0.2 Neut % (Auto) 53.0 Lymph % (Auto) 36.8 [place] % (Auto) 8.7 Eos % (Auto) 0.9 Baso % (Auto) 0.4 Lymph # (Auto) 2.0 [place] # (Auto) 0.5 Eos # (Auto) 0.1 Baso # (Auto) 0.0 Abs Immat Gran (auto) 0.01 Absolute Neuts (auto) 2.9 Absolute Nucleated RBC 0.000 Nucleated RBC % (auto) 0.0 PT 11.4 INR 0.9 APTT 31.0 Sodium 141 Potassium 4.0 Chloride 104 Carbon Dioxide 26 Anion Gap 15 BUN 19 H Creatinine 0.77 Estim Creat Clear Calc 176.7 Estimated GFR > 60 Random Glucose 92 Estimat Average Glucose 105 Hemoglobin A1c % 5.3 Insulin Level 7 Calcium 10.3 H Iron 95 TIBC 301 % Saturation 32 Unsat Iron Binding 206 Ferritin 386 H Total Bilirubin 0.6 AST 22 ALT 26 Alkaline Phosphatase 67 C-Reactive Protein 0.46 Total Protein 7.7 Albumin 4.4 Triglycerides 180 H Cholesterol 139 LDL Cholesterol, Calc 68 HDL Cholesterol 35 L Vitamin B12 679 25-OH Vitamin D Total 34.8 Folate 4.3 TSH 1.34 Zinc 122 Blood Type A Positive Antibody Screen NEGATIVE Narrative Narrative: EKG 2023 Vent. Rate : 065 BPM Atrial Rate : 065 BPM P-R Int : 140 ms QRS Dur : 092 ms QT Int : 422 ms P-R-T Axes : 059 -46 035 degrees QTc Int : 438 ms Normal sinus rhythm Left anterior fascicular block Nonspecific T wave abnormality Abnormal ECG No previous ECGs available Assessment and Plan Assessment Anesthesia Assessment: Chart Reviewed
[2023-11-05 04:03] LABS: Vitamin A 61 mcg/dL (38-98)
[2023-11-05 12:17] LABS: Vitamin B1 <6 nmol/L (8-30)
== END 2023-11-06 00:01 | disposition home or self-care (01) ==
LOC: HO.PAT
PROVIDERS: PCP Internal Medicine; Visit Provider Surgery
DX: Z01.818 Encounter for other preprocedural examination (principal); E66.01 Morbid (severe) obesity due to excess calories; G47.30 Sleep apnea, unspecified; E78.5 Hyperlipidemia, unspecified; E11.9 Type 2 diabetes mellitus without complications
CPT/HCPCS: 36415; 80053; 80061; 82306; 82607; 82728; 82746; 83036; 83525; 83540; 84425; 84443; 84590; 84630; 85025; 85610; 85730; 86140; 86850; 86900; 86901